=== PATIENT | female | born 1965 | race Caucasian/White ===

== ENCOUNTER 2025-03-13 20:45 | Emergency (ER) | payer MEDICAID ==
[~2025-03-13] VITALS: Ht 162.6 cm; Wt 109.0 kg
[2025-03-13 20:49] VITALS: TEMP 36.7; O2SAT 98
[2025-03-13] MEDS: HYDROXYZINE 25MG TABLET PO ONE (21:30)
[2025-03-13 21:47] LABS: BASOPHILS % 0.4 % (0.0-2.0); EOSINOPHILS % 2.8 % (0.0-5.0); HEMATOCRIT. 41.4 % (36.0-48.0); HEMOGLOBIN. 13.8 g/dL (12.0-16.0); LYMPHOCYTES % 30.4 % (20.0-50.0); MEAN PLATELET VOLUME 8.3 fl (7.4-10.4); MONOCYTES % 6.2 % (2.0-8.0); NEUTROPHILS % 60.2 % (40.0-76.0); PLATELET 222 x1000/uL (130-400); RED BLOOD CELL COUNT 4.61 mill/uL (4.2-5.4); RED CELL DISTRIBUTION WIDTH 13.9 % (11.6-14.6)
[2025-03-13 22:05] LABS: CREATININE 1.1 mg/dL (0.6-1.0); UREA NITROGEN BLOOD 18 mg/dL (9-23)
[2025-03-13 22:06] LABS: TROPONIN I HIGH SENSITIVITY < 4 ng/L (3.0-34)
[2025-03-14 00:04] LABS: TROPONIN I HIGH SENSITIVITY < 4 ng/L (3.0-34)
[2025-03-14 00:46] VITALS: BP 104/59; PULSE 66; RESP 14; O2SAT 100
== END 2025-03-14 00:48 | disposition home or self-care (01) ==
LOC: ER 20:55
DX: R06.02 Shortness of breath (principal); E11.40 Type 2 diabetes mellitus with diabetic neuropathy, unspecified; F41.9 Anxiety disorder, unspecified; J45.909 Unspecified asthma, uncomplicated; Z79.899 Other long term (current) drug therapy; Z88.8 Allergy status to other drugs, medicaments and biological substances; Z88.5 Allergy status to narcotic agent; Z88.2 Allergy status to sulfonamides
CPT/HCPCS: 36415; 71045; 80048; 84484; 85025; 93005; 99285